=== PATIENT | male | born 1990 | race Hispanic/Latino ===

== ENCOUNTER 2017-08-08 22:46 | Emergency (ER) | payer OTHER ==
[2017-08-08 23:04] LABS: Bilirubin Small (Negative); Clarity TURBID (Clear); Glucose, Urine (Dipstick) Negative (Negative); Leukocyte Negative (Negative); Nitrite Negative (Negative); Protein, Urine (Dipstick) 100 mg/dL (Neg-Trace); Urobilinogen 0.2 mg/dL (0.2-1.0); pH, Urine 5.5 (5.0-9.0)
[2017-08-08 23:05] LABS: Bacteria/HPF None Seen HPF (None Seen); Squamous Epithelial 0-3 HPF (0-3)
[2017-08-08 23:06] LABS: Pathc Cast-AUWi Flag 3.52 (0-2.49)
[2017-08-08 23:08] LABS: Blood, Urine Negative (Negative)
[2017-08-08 23:12] LABS: #Basophils 0.1 thou/uL (0.0-0.2); #Lymphocytes 0.4 thou/uL (1.20-3.40); #Monocytes 0.4 thou/uL (0.11-0.59); #Neutrophils 8.8 thou/uL (1.40-6.50); %Basophils 0.7 % (0.0-1.0); %Eosinophils 0.4 % (0.0-10.0); %Lymphocytes 3.9 % (21.0-51.0); %Monocytes 3.7 % (0.0-10.0); %Neutrophils 91.3 % (42.0-75.0); Mean Corpuscular HGB CONC 33.1 g/dL (32.0-36.0); Mean Corpuscular Hemoglobin 30.1 pg (27.0-31.0); Mean Platelet Volume 7.5 fL (7.4-10.4); Platelet Count 229 thou/uL (130-400); RBC Distribution Width 13.7 % (11.5-14.5); Red Blood Cell (RBC) Count 5.66 mill/uL (4.70-6.10); White Blood Cell (WBC) Count 9.7 thou/uL (4.8-10.8)
[2017-08-08 23:17] LABS: RBC/HPF None Seen HPF (0-3)
[2017-08-08 23:18] LABS: Hyaline Casts/LPF 0-3 HYALINE CAST LPF (0-3 Hyaline)
[2017-08-08 23:19] LABS: Crystals/HPF 1+ AMORPH URATES HPF (Negative)
[2017-08-08 23:33] LABS: ALT (SGPT) 19 U/L (8-55); AST (SGOT) 21 U/L (5-34); Alkaline Phosphatase 103 U/L (40-150); Anion Gap 17 mmol/L (10-20); BUN (Urea Nitrogen) 12 mg/dL (8.9-20.6); Bilirubin, Total 1.4 mg/dL (0.2-1.2); Calc. Creatinine Clearance 0 mL/min (70-130); Calcium 10.1 mg/dL (7.8-10.44); Carbon Dioxide 21 mmol/L (22-29); Chloride 102 mmol/L (98-107); Estimated GFR-MDRD Greater than 90; Globulin 3.7 g/dL (2.4-3.5); Glucose 127 mg/dL (70-105); Potassium 3.9 mmol/L (3.5-5.1); Protein, Total 8.7 g/dL (6.0-8.3); Sodium 136 mmol/L (136-145)
[2017-08-09] MEDS ORDERED: Ondansetron HCl/PF 4 MG/2 ML Vial ONE (00:48)
== END 2017-08-09 01:51 | disposition home or self-care (01) ==
LOC: ERS 22:46
DX: E86.0 Dehydration (principal); R11.2 Nausea with vomiting, unspecified; R19.7 Diarrhea, unspecified
CPT/HCPCS: 36415; 80053; 81003; 81015; 85025; 96374; J2405

== ENCOUNTER 2018-03-19 08:47 | Outpatient (CLI) | payer OTHER | END 2018-03-19 08:48 | disposition home or self-care (01) | LOC: BICULT 08:47 | PROVIDERS: ATTEND Internal Medicine Gastroenterology | DX: E04.1 Nontoxic single thyroid nodule (principal); D12.6 Benign neoplasm of colon, unspecified; K94.10 Enterostomy complication, unspecified; Z85.038 Personal history of other malignant neoplasm of large intestine | CPT/HCPCS: 76536 ==

== ENCOUNTER 2018-09-22 11:22 | Emergency (ER) | payer OTHER ==
[2018-09-22 12:00] LABS: Bilirubin Moderate (Negative); Blood, Urine Negative (Negative); Clarity CLOUDY (Clear); Glucose, Urine (Dipstick) Negative (Negative); Leukocyte Negative (Negative); Nitrite Negative (Negative); Protein, Urine (Dipstick) 100 mg/dL (Neg-Trace); Specific Gravity, Urine 1.031 (1.002-1.036); Urobilinogen 0.2 mg/dL (0.2-1.0)
[2018-09-22 12:02] LABS: Bacteria/HPF None Seen HPF (None Seen); RBC/HPF 0-3 HPF (0-3)
[2018-09-22 12:04] LABS: Pathc Cast-AUWi Flag 83.88 (0-2.49)
[2018-09-22 12:18] LABS: Hyaline Casts/LPF 0-3 HYALINE CAST LPF (0-3 Hyaline); Renal Epithelial None Seen HPF (0-3); Transitional Epithelial NONE SEEN HPF (0-3)
[2018-09-22 13:00] LABS: #Lymphocytes 0.7 thou/uL (1.20-3.40); #Monocytes 1.1 thou/uL (0.11-0.59); #Neutrophils 8.5 thou/uL (1.40-6.50); %Basophils 0.4 % (0.0-1.0); %Eosinophils 0.2 % (0.0-10.0); %Lymphocytes 7.1 % (21.0-51.0); %Monocytes 10.2 % (0.0-10.0); %Neutrophils 82.2 % (42.0-75.0); Hemoglobin 18.9 g/dL (14.0-18.0); Mean Corpuscular HGB CONC 32.3 g/dL (32.0-36.0); Mean Corpuscular Hemoglobin 28.3 pg (27.0-31.0); Mean Corpuscular Volume 87.6 fL (78.0-98.0); Mean Platelet Volume 7.7 fL (7.4-10.4); Platelet Count 317 thou/uL (130-400); RBC Distribution Width 12.3 % (11.5-14.5); Red Blood Cell (RBC) Count 6.66 mill/uL (4.70-6.10); White Blood Cell (WBC) Count 10.4 thou/uL (4.8-10.8)
[2018-09-22] MEDS ORDERED: Ondansetron PF 4 MG/2 ML Vial ONE (13:23)
[2018-09-22 13:29] LABS: ALT (SGPT) 27 U/L (8-55); AST (SGOT) 23 U/L (5-34); Albumin 5.4 g/dL (3.5-5.0); Alkaline Phosphatase 138 U/L (40-150); Anion Gap 17 mmol/L (10-20); BUN (Urea Nitrogen) 28 mg/dL (8.9-20.6); Bilirubin, Total 0.9 mg/dL (0.2-1.2); Calc. Creatinine Clearance 0 mL/min (70-130); Calcium 10.9 mg/dL (7.8-10.44); Carbon Dioxide 22 mmol/L (22-29); Chloride 95 mmol/L (98-107); Estimated GFR-MDRD 50; Globulin 4.9 g/dL (2.4-3.5); Glucose 115 mg/dL (70-105); Lipase 57 U/L (8-78); Potassium 4.6 mmol/L (3.5-5.1); Protein, Total 10.3 g/dL (6.0-8.3); Sodium 129 mmol/L (136-145)
== END 2018-09-22 15:50 | disposition home or self-care (01) ==
LOC: ERS 11:22
DX: R11.2 Nausea with vomiting, unspecified (principal); R19.7 Diarrhea, unspecified
CPT/HCPCS: 36415; 80053; 81003; 81015; 82550; 83690; 85025; 96361; 96374; J2405

== ENCOUNTER 2020-10-18 18:03 | Outpatient (CLI) | payer OTHER ==
[2020-10-19 04:30] LABS: SARS-CoV-2 PCR by NAA Not Detected (NotDetected)
== END 2020-10-18 18:04 | disposition home or self-care (01) ==
LOC: LABBT 18:03
PROVIDERS: ATTEND Internal Medicine Gastroenterology
DX: Z01.812 Encounter for preprocedural laboratory examination (principal); K31.7 Polyp of stomach and duodenum; Z20.822 Contact with and (suspected) exposure to COVID-19
CPT/HCPCS: 87635; U0003; U0005

== ENCOUNTER 2020-10-23 08:42 | Day surgery (SDC) | payer OTHER ==
[2020-10-22 12:18] VITALS: BMI 15.3
[2020-10-23] MEDS ORDERED: Lidocaine 1% PF 5 ML VIAL ONE (10:27)
== END 2020-10-23 11:30 | disposition home or self-care (01) ==
LOC: SDC 08:42
PROVIDERS: ATTEND Internal Medicine Gastroenterology
PROC: 0DJ08ZZ Inspection of Upper Intestinal Tract, Via Natural or Artificial Opening Endoscopic (ICD-10-PCS; principal; 2020-10-23)
DX: K31.7 Polyp of stomach and duodenum (principal); K44.9 Diaphragmatic hernia without obstruction or gangrene; Z80.0 Family history of malignant neoplasm of digestive organs; Z85.038 Personal history of other malignant neoplasm of large intestine; Z86.010 Personal history of colon polyps